=== PATIENT | male | born 1985 | race Caucasian/White ===

== ENCOUNTER 2019-08-24 04:29 | Emergency (ER) | payer SELFPAY ==
[~2019-08-24] VITALS: Ht 167.6 cm; Wt 81.6 kg
[2019-08-24 04:37] VITALS: Ht 167.6 cm; Wt 81.6 kg
[2019-08-24 06:17] VITALS: BP 121/79
== END 2019-08-24 06:17 | disposition home or self-care (01) ==
LOC: ED 04:29
DX: F11.23 Opioid dependence with withdrawal (principal)